=== PATIENT | female | born 1990 | race Caucasian/White ===

== ENCOUNTER 2024-01-11 10:59 | Emergency (ER) | payer OTHER, MEDICAID ==
[~2024-01-11] VITALS: Ht 167.6 cm; Wt 67.6 kg
[2024-01-11 12:06] VITALS: BP 104/65; PULSE 79; RESP 16; TEMP 98.6; O2SAT 100
[2024-01-11] MEDS: KETOROLAC TROMETH 60MG/2ML VIAL IM ONE (12:30)
[2024-01-11] MEDS ORDERED: IBUP-1456 PO (12:59)
[2024-01-11] MEDS ORDERED: CYCL-839 PO (12:59)
== END 2024-01-11 13:07 | disposition home or self-care (01) ==
LOC: ER 10:59
DX: S39.012A Strain of muscle, fascia and tendon of lower back, initial encounter (principal); Z88.2 Allergy status to sulfonamides; Z88.6 Allergy status to analgesic agent; X58.XXXA Exposure to other specified factors, initial encounter; Y93.89 Activity, other specified; Y92.89 Other specified places as the place of occurrence of the external cause; Y99.8 Other external cause status
CPT/HCPCS: 96372; 99283; J1885

== ENCOUNTER 2024-08-02 12:36 | Emergency (ER) | payer MEDICAID, OTHER ==
[~2024-08-02] VITALS: Ht 167.6 cm; Wt 64.0 kg
[~2024-08-02 12:36] MED LIST: CYCL-839 PO; IBUP-1456 PO
[2024-08-02 13:12] VITALS: BP 109/67; RESP 16; O2SAT 99
[2024-08-02 13:17] VITALS: PULSE 98
[2024-08-02 13:44] LABS: Urine Bacteria None Seen /hpf (None Seen); Urine WBC None Seen /hpf (0 - 5)
[2024-08-02 13:54] LABS: Urine Blood Negative /uL (Negative); Urine Clarity Clear (Clear); Urine Color Colorless (Yellow); Urine Protein, UAD Negative (Negative); Urine Specific Gravity 1.005 (1.001-1.035); Urine Urobilinogen Normal (Negative); Urine pH 5.5 (5.0-9.0)
[2024-08-02 14:08] LABS: Basophils # (auto) 0 10 ^3/uL (0-0.2); Basophils % (auto) 0.4 % (0.0-2.0); Eosinophils # (auto) 0 10 ^3/uL (0-0.8); Eosinophils % (auto) 0.3 % (0.0-7.0); Hematocrit 40.3 % (36.0-46.0); Hemoglobin 13.8 g/dL (12.2-16.2); Lymphocytes # (auto) 0.4 10 ^3/uL (0.4-5.4); Lymphocytes % (auto) 4.3 % (10.0-50.0); Mean Corpuscular Hemoglobin 29.7 pg (28.0-32.0); Mean Corpuscular Hgb Conc. 34.2 g/dL (32.0-36.0); Mean Corpuscular Volume 86.9 fL (80.0-100.0); Monocytes # (auto) 0.9 10 ^3/uL (0-1.3); Monocytes % (auto) 9.9 % (0.0-12.0); Neutrophils # (auto) 7.6 10 ^3/uL (1.6-8.6); Neutrophils % (auto) 85.1 % (37.0-80.0); Nucleated Red Blood Cells % 0.1 %; Platelet Count (auto) 240 10^3/uL (140-450); Red Blood Cells 4.64 10^6/uL (4.0-5.20); Red Cell Distribution Width 12.8 % (11.8-14.3); White Blood Cell 8.9 10^3/uL (4.4-10.8)
--- NOTE | 2024-08-02 14:43 | DVH ---
XY CHEST TWO VIEWS ROUTINE CLINICAL HISTORY: cough COMPARISON: None TECHNIQUE: Frontal and lateral view of the chest was obtained FINDINGS: Lines and Tubes: None Lungs: No focal consolidation. Pleura: No effusion. No pneumothorax. Cardiomediastinal contours: Unremarkable Bones: No acute osseous abnormality. IMPRESSION: No acute cardiopulmonary disease.
[2024-08-02 15:42] LABS: Alanine Aminotransferase 20 U/L (7-40); Albumin 4.5 g/dL (3.2-4.8); Alkaline Phosphatase 63 U/L (46-116); Anion Gap 12 (5-15); Aspartate Aminotransferase 15 U/L (13-40); Bilirubin, Total 0.7 mg/dL (0.2-1.0); Calcium 9.8 mg/dL (8.7-10.4); Chloride 107 mmol/L (98-107); Glucose 85 mg/dL (74-106); Potassium 3.5 mmol/L (3.5-5.1); Sodium 137 mmol/L (136-145); Total Protein 7.3 g/dL (5.7-8.2)
[2024-08-02 15:43] LABS: BUN/Creatinine Ratio 6.2 (10.0-20.0); Blood Urea Nitrogen < 5 mg/dL (9-23); Carbon Dioxide 18 mmol/L (20-31)
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
[2024-08-02] MEDS ORDERED: OSEL75CA5 PO (18:25)
[2024-08-02 18:36] LABS: Rapid Influenza B Negative (Negative)
[2024-08-02 18:43] LABS: Rapid Influenza A Positive (Negative)
--- NOTE | 2024-08-05 06:44 | ECG ---
[facility] Test Date: 2024-08-02 Test Time: 13:17:35 Pat Name: HECTOR ROBERSON Department: ER Room: Gender: F Can Filling Room Sweeper: DR NEELY: 1990 Requested By: NEEMA FARMER Order Number: [id number] Reading MD: Measurements Intervals [place] Rate: 98 P: 66 HI: 140 QRS: 68 QRSD: 76 T: 29 QT: 344 QTc: 440 Interpretive Statements Sinus rhythm Please click the below link to view image of tracing.
== END 2024-08-02 18:12 | disposition left against medical advice (07) ==
LOC: ER 12:36
DX: R05.9 Cough, unspecified (principal); R06.02 Shortness of breath; F31.9 Bipolar disorder, unspecified; F84.0 Autistic disorder; Z79.1 Long term (current) use of non-steroidal anti-inflammatories (NSAID); Z88.2 Allergy status to sulfonamides; Z88.5 Allergy status to narcotic agent; Z79.899 Other long term (current) drug therapy
CPT/HCPCS: 36415; 71046; 80053; 81001; 84484; 85025; 87804; 93005